=== PATIENT | female | born 1950 | race Caucasian/White ===

== ENCOUNTER → 2017-02-15 | Outpatient (CLI) | payer OTHER ==
[~2017-02-15] MED LIST: ALBU6.7H INH; CALC1TAB38 PO; DIPH25CA61 PO; FLUT1DIS IH; GLIM2TAB2 PO; HYDR-3138 PO; HYDR28.423 TP; LORA10TA72 PO; LOSA100T6 PO; LOSA1TAB16 PO; NAPR220C2 PO; TRIA15OI TP
== END | disposition home or self-care (01) ==
LOC: CFH 11:58
PROVIDERS: ATTEND Neurological Surgery
DX: M51.37 Other intervertebral disc degeneration, lumbosacral region (principal); M50.30 Other cervical disc degeneration, unspecified cervical region; M43.16 Spondylolisthesis, lumbar region; M48.06 Spinal stenosis, lumbar region; M48.02 Spinal stenosis, cervical region; M47.892 Other spondylosis, cervical region; M47.893 Other spondylosis, cervicothoracic region; G95.89 Other specified diseases of spinal cord
CPT/HCPCS: 72050; 72110

== ENCOUNTER 2017-07-13 10:01 | Emergency (ER) | payer OTHER ==
[~2017-07-13] VITALS: Ht 154.9 cm; Wt 113.0 kg
[~2017-07-13 10:01] MED LIST changes: -HYDR-3138 PO; +HYDR-3237 PO; -LOSA1TAB16 PO; +LOSA1TAB19 PO
[2017-07-13 10:10] VITALS: BP 159/114
[2017-07-13] MEDS ORDERED: SODIUM CHLORIDE 0.9% 1,000 ML IV ONE (10:10)
[2017-07-13] MEDS ORDERED: PLEASE ENTER HEIGHT AND WEIGHT MC SCH (10:30)
[2017-07-13] MEDS ORDERED: SODIUM CHLORIDE FLUSH 10ML SYR IVF ONE (10:30)
[2017-07-13] MEDS ORDERED: ASPIRIN 81 MG TABLET CHEW PO ONE (10:30)
[2017-07-13 10:38] LABS: HEMATOCRIT 45.4 % (34.6-47.8); HEMOGLOBIN 15.3 g/dL (11.7-16.4); WHITE BLOOD COUNT 8.6 x10^3/uL (3.4-10)
[2017-07-13] MEDS ORDERED: FENO160T PO (10:39)
[2017-07-13] MEDS ORDERED: SITA100T PO (10:39)
[2017-07-13] MEDS ORDERED: CHOL200024 PO (10:39)
[2017-07-13 10:45] LABS: ASPARTATE AMINO TRANSFERASE 17 U/L (15-37); BLOOD UREA NITROGEN 11 mg/dL (7-18)
[2017-07-13 10:50] LABS: IS PT STATUS REG ER OR PRE ER? YES
[2017-07-13] MEDS ORDERED: RANI150C PO (16:43)
== END 2017-07-13 12:59 | disposition home or self-care (01) ==
LOC: ED 11:15
DX: R07.89 Other chest pain (principal); E11.9 Type 2 diabetes mellitus without complications; E78.00 Pure hypercholesterolemia, unspecified; I10 Essential (primary) hypertension; Z87.891 Personal history of nicotine dependence
CPT/HCPCS: 36415; 71010; 80053; 83880; 84484; 85025; 93005; 96360; 96361; 99285; J7030

== ENCOUNTER 2017-07-13 15:52 | Inpatient (IN) | payer OTHER ==
[~2017-07-13] VITALS: Ht 154.9 cm; Wt 113.6 kg
[~2017-07-13 15:52] MED LIST changes: +CHOL200024 PO; +FENO160T PO; +SITA100T PO
[2017-07-13] MEDS ORDERED: RANI150C PO (16:43)
[2017-07-13 17:05] LABS: IS PT STATUS REG ER OR PRE ER? YES
[2017-07-13] MEDS ORDERED: OMNIPAQUE 350 MG/ML, 100ML BOTTLE ONE (19:31)
[2017-07-13] MEDS ORDERED: ONDANSETRON 2MG/ML, 2ML IVPush PRN (20:00)
[2017-07-13] MEDS: HEPARIN 5,000 UNITS/ML, 1ML SQ SCH (20:00)
[2017-07-13] MEDS ORDERED: morphine SULFATE 10 MG/ML, 1ML IVPush PRN (20:00)
[2017-07-13] MEDS ORDERED: POLYETHYLENE GLYCOL 17 GM PACKET PO PRN (20:00)
[2017-07-13] MEDS ORDERED: NITROGLYCERIN 0.4 MG BOTTLE (25 TABS) SL PRN (20:00)
[2017-07-13] MEDS ORDERED: BISACODYL 10 MG SUPP PR PRN (20:00)
[2017-07-13] MEDS ORDERED: DIPHENHYDRAMINE 25 MG CAPSULE PO PRN (20:00)
[2017-07-13] MEDS ORDERED: ACETAMINOPHEN 325 MG TABLET PO PRN (20:00)
[2017-07-13 20:23] LABS: FERRITIN 45.7 ng/mL (8-252)
[2017-07-13] MEDS ORDERED: ALBUTEROL/IPRATROPIUM 2.5MG/0.5MG, 3 ML NPPB PRN (20:30)
[2017-07-13] MEDS ORDERED: RANITIDINE MC SCH (21:00)
[2017-07-13] MEDS ORDERED: GLIMEPIRIDE MC SCH (21:00)
[2017-07-13 21:24] VITALS: BP 142/85
[2017-07-13] MEDS: SODIUM CHLORIDE FLUSH 10ML SYR IVF SCH (21:52)
[2017-07-13] MEDS: GLIMEPIRIDE 1 MG TABLET PO SCH (22:16)
[2017-07-13] MEDS ORDERED: CALCIUM CARBONATE 500 MG TAB.CHEW PO PRN (22:30)
[2017-07-13 23:39] LABS: IS PT STATUS REG ER OR PRE ER? NO
[2017-07-14 01:30] VITALS: BP 111/60
[2017-07-14] MEDS: HEPARIN 5,000 UNITS/ML, 1ML SQ SCH ×2 (04:00→12:00)
[2017-07-14 05:06] LABS: IS PT STATUS REG ER OR PRE ER? NO
[2017-07-14] MEDS ORDERED: ASPIRIN 81 MG TABLET EC PO SCH (06:00)
[2017-07-14] MEDS ORDERED: HYDROCHLOROTHIAZIDE 12.5 MG CAPSULE PO SCH (09:00)
[2017-07-14] MEDS ORDERED: FAMOTIDINE 20 MG TABLET PO SCH (09:00)
[2017-07-14] MEDS ORDERED: SENNA/DOCUSATE TABLET PO SCH (09:00)
[2017-07-14] MEDS ORDERED: FENOFIBRATE 145 MG TABLET PO SCH (09:00)
[2017-07-14] MEDS ORDERED: SITAGLIPTIN 50MG TABLET PO SCH (09:00)
[2017-07-14] MEDS ORDERED: CHOLECALCIFEROL 1,000 UNIT TABLET PO SCH (09:00)
[2017-07-14] MEDS ORDERED: LOSARTAN 50MG TABLET PO SCH (09:00)
[2017-07-14 11:25] VITALS: BP 120/83
[2017-07-14 13:40] VITALS: BP 112/58
[2017-07-14] MEDS: GLIMEPIRIDE 1 MG TABLET PO SCH (14:46)
[2017-07-14] MEDS: SODIUM CHLORIDE FLUSH 10ML SYR IVF SCH (14:49)
== END 2017-07-14 18:25 | disposition home or self-care (01) | DRG 313 ==
LOC: ED 18:06 → EDIP 18:33 → 5SO 20:28
PROVIDERS: ADMIT Internal Medicine; ATTEND Internal Medicine
DX: R07.89 Other chest pain (principal); I25.10 Atherosclerotic heart disease of native coronary artery without angina pectoris; E11.65 Type 2 diabetes mellitus with hyperglycemia; I11.9 Hypertensive heart disease without heart failure; Z68.42 Body mass index [BMI] 45.0-49.9, adult; D50.9 Iron deficiency anemia, unspecified; E66.01 Morbid (severe) obesity due to excess calories; E78.00 Pure hypercholesterolemia, unspecified; E78.5 Hyperlipidemia, unspecified; G47.33 Obstructive sleep apnea (adult) (pediatric); I25.2 Old myocardial infarction; Z82.3 Family history of stroke; Z90.49 Acquired absence of other specified parts of digestive tract; Z88.8 Allergy status to other drugs, medicaments and biological substances; Z87.891 Personal history of nicotine dependence
CPT/HCPCS: 36415; 71275; 80061; 82728; 82962; 83036; 83540; 83550; 84439; 84443; 84484; 85379; 93005; 93306; 99285; Q9967

== ENCOUNTER → 2017-10-19 | Outpatient (CLI) | payer MEDICARE, OTHER ==
[~2017-10-19] MED LIST changes: +RANI150C PO
== END | disposition home or self-care (01) ==
LOC: CFH 14:23
PROVIDERS: ATTEND Neurological Surgery
DX: M50.323 Other cervical disc degeneration at C6-C7 level (principal); M48.061 Spinal stenosis, lumbar region without neurogenic claudication; M25.78 Osteophyte, vertebrae
CPT/HCPCS: 72050; 72110

== ENCOUNTER → 2018-03-08 | Outpatient (CLI) | payer MEDICARE ==
[2018-03-08 15:53] LABS: BASOPHILS # (AUTO) 0.05 x10^3/uL (0-0.1); BASOPHILS % (AUTO) 1 % (0-1); EOSINOPHILS # (AUTO) 0.18 x10^3/uL (0-0.4); EOSINOPHILS % (AUTO) 2 % (1-7); LYMPHOCYTES # (AUTO) 3.18 x10^3/uL (1-3.4); LYMPHOCYTES % (AUTO) 42 % (22-44); MD NO; MEAN CORPUSCULAR HEMOGLOBIN 26.4 pg (27.0-34.8); MEAN CORPUSCULAR HGB CONC 33.1 g/dL (32.4-35.8); MEAN CORPUSCULAR VOLUME 79.7 fL (80-100); MEAN PLATELET VOLUME 8.9 fL (7.4-10.4); MONOCYTES # (AUTO) 0.56 x10^3/uL (0.2-0.8); MONOCYTES % (AUTO) 7 % (2-9); NEUTROPHILS % (AUTO) 48 % (42-75); PLATELET COUNT 283 x10^3/uL (130-400); RED BLOOD COUNT 5.77 x10^6/uL (3.82-5.3); RED CELL DISTRIBUTION WIDTH 15.4 % (9.6-15.2)
[2018-03-08 16:01] LABS: ALBUMIN 4.3 g/dL (3.4-5.0); ANION GAP 6 mmol/L (5-15); CALCIUM 10.6 mg/dL (8.5-10.1); CHLORIDE 105 mmol/L (98-107)
[2018-03-08 16:07] LABS: ALANINE AMINOTRANSFERASE 27 U/L (12-78); ALKALINE PHOSPHATASE 68 U/L (45-117); BILIRUBIN,TOTAL 0.6 mg/dL (0.2-1.0); CHOL/HDL RATIO 6.2; CHOLESTEROL, TOTAL 198 mg/dL (140-239); CREATININE 1.14 mg/dL (0.55-1.02); HDL CHOL % 16 % (28-40); HDL CHOLESTEROL (DIRECT) 32 mg/dL (40-60); LDL CHOLESTEROL,CALCULATED 131 mg/dL (54-169); LDL/HDL RATIO 4.1 (0.5-3.0); TOTAL PROTEIN 7.6 g/dL (6.4-8.2); TRIGLYCERIDES 176 mg/dL (50-200); VLDL CHOLESTEROL 35 mg/dL (0-25)
[2018-03-08 16:17] LABS: HEMOGLOBIN A1C 7.4 % (4.2-6.3)
== END | disposition home or self-care (01) ==
LOC: LAB 14:49
PROVIDERS: ATTEND Registered Nurse
DX: E11.40 Type 2 diabetes mellitus with diabetic neuropathy, unspecified (principal); E78.5 Hyperlipidemia, unspecified; I10 Essential (primary) hypertension; J45.909 Unspecified asthma, uncomplicated
CPT/HCPCS: 36415; 80053; 80061; 83036; 85025

== ENCOUNTER → 2018-03-23 | Outpatient (CLI) | payer MEDICARE | END | disposition home or self-care (01) | LOC: CFH 16:10 | PROVIDERS: ATTEND Physician Assistant | DX: R10.2 Pelvic and perineal pain (principal) | CPT/HCPCS: 76830 ==

== ENCOUNTER → 2020-06-08 | Outpatient (CLI) | payer MEDICARE ==
[~2020-06-08] MED LIST changes: -ALBU6.7H INH; +ALBU6.7H8 INH; -GLIM2TAB2 PO; +GLIM2TAB7 PO; +LOSA100T14 PO; -LOSA100T6 PO
== END | disposition home or self-care (01) ==
LOC: RAD 11:20
PROVIDERS: ATTEND Neurological Surgery
DX: S33.140A Subluxation of L4/L5 lumbar vertebra, initial encounter (principal); M51.34 Other intervertebral disc degeneration, thoracic region; X58.XXXA Exposure to other specified factors, initial encounter; Y93.89 Activity, other specified; Y92.89 Other specified places as the place of occurrence of the external cause; Y99.8 Other external cause status
CPT/HCPCS: 72050; 72072; 72110

== ENCOUNTER 2020-07-20 06:57 | Outpatient (CLI) | payer MEDICARE ==
[2020-07-20] MEDS ORDERED: NALOXONE 1 MG/ML, 2ML ONE (07:58)
[2020-07-20] MEDS ORDERED: FLUMAZENIL 0.1 MG/1 ML, 5ML ONE (07:58)
[2020-07-20] MEDS ORDERED: MIDAZOLAM 1 MG/ML, 5ML ONE (07:58)
[2020-07-20] MEDS ORDERED: FENTANYL PF 100 MCG/2ML ONE ×2 (07:58)
== END 2020-07-20 23:59 | disposition home or self-care (01) ==
LOC: RAD 06:57
PROVIDERS: ATTEND Neurological Surgery
DX: M47.816 Spondylosis without myelopathy or radiculopathy, lumbar region (principal); M48.061 Spinal stenosis, lumbar region without neurogenic claudication; M54.2 Cervicalgia; M96.1 Postlaminectomy syndrome, not elsewhere classified; M46.1 Sacroiliitis, not elsewhere classified; I10 Essential (primary) hypertension; E11.9 Type 2 diabetes mellitus without complications; J45.909 Unspecified asthma, uncomplicated; Z79.84 Long term (current) use of oral hypoglycemic drugs; Z79.899 Other long term (current) drug therapy; Z87.891 Personal history of nicotine dependence; Z88.8 Allergy status to other drugs, medicaments and biological substances; Z90.49 Acquired absence of other specified parts of digestive tract; Z98.1 Arthrodesis status; Z98.51 Tubal ligation status; Z98.890 Other specified postprocedural states; Z82.61 Family history of arthritis; Z83.3 Family history of diabetes mellitus; Z82.49 Family history of ischemic heart disease and other diseases of the circulatory system; Z83.42 Family history of familial hypercholesterolemia
CPT/HCPCS: 72148; 99156; 99157; J2250; J3010; J2310

== ENCOUNTER 2020-12-26 11:14 | Emergency (ER) | payer MEDICARE ==
[~2020-12-26] VITALS: Ht 157.5 cm; Wt 114.9 kg
--- NOTE | 2020-12-26 13:53 | NUR ---
XRAY AT BEDSIDE IV SET UP AT BEDSIDE. PT CHANGED INTO GOWN. REPORTS TIREDNESS UPON EXERTION. NAD NOTED AT THIS TIME. SIDE RAIL UP, CALL LIGHT IN REACH.
[2020-12-26] MEDS ORDERED: SODIUM CHLORIDE 0.9% 1,000 ML IV ONE (14:00)
[2020-12-26 14:32] LABS: ALANINE AMINOTRANSFERASE 29 U/L (12-78); ALBUMIN 4.8 g/dL (3.4-5.0); ANION GAP 4 mmol/L (5-15); CALCIUM 11.3 mg/dL (8.5-10.1); CHLORIDE 104 mmol/L (98-107)
[2020-12-26 14:35] LABS: ALKALINE PHOSPHATASE 85 U/L (45-117); BASOPHILS % (AUTO) 1 % (0-1); BILIRUBIN,TOTAL 0.5 mg/dL (0.2-1.0); EOSINOPHILS % (AUTO) 2 % (1-7); LYMPHOCYTES % (AUTO) 39 % (22-44); MEAN CORPUSCULAR HEMOGLOBIN 26.7 pg (27.0-34.8); MEAN CORPUSCULAR HGB CONC 33.1 g/dL (32.4-35.8); MEAN PLATELET VOLUME 8.8 fL (7.4-10.4); MONOCYTES % (AUTO) 8 % (2-9); NEUTROPHILS % (AUTO) 50 % (42-75); PLATELET COUNT 315 x10^3/uL (130-400); RED BLOOD COUNT 5.62 x10^6/uL (3.82-5.3); RED CELL DISTRIBUTION WIDTH 14.7 % (9.6-15.2); TOTAL PROTEIN 8.4 g/dL (6.4-8.2)
--- NOTE | 2020-12-26 14:41 | NUR ---
PT SITTING UP IN BED, RESPIRATIONS EVEN AND UNLABORED ON RA. NAD NOTED AT THIS TIME.
[2020-12-26] MEDS ORDERED: MORPHINE SULFATE 4 MG/ML, 1ML IVPush PRN (15:30)
[2020-12-26 16:20] VITALS: BP 129/68
== END 2020-12-26 16:37 | disposition home or self-care (01) ==
LOC: ED 14:55
DX: E83.52 Hypercalcemia (principal); R53.1 Weakness; R06.02 Shortness of breath; E11.9 Type 2 diabetes mellitus without complications; R00.2 Palpitations; I10 Essential (primary) hypertension; E78.00 Pure hypercholesterolemia, unspecified; Z90.49 Acquired absence of other specified parts of digestive tract; R10.9 Unspecified abdominal pain
CPT/HCPCS: 36415; 71045; 73590; 80053; 82330; 85025; 93005; 96360; 96361; 99285; J7030

== ENCOUNTER → 2021-04-05 | Outpatient (CLI) | payer MEDICARE | END | disposition home or self-care (01) | LOC: RAD 11:34 | PROVIDERS: ATTEND Surgery | DX: E21.0 Primary hyperparathyroidism (principal) | CPT/HCPCS: 78070; A9500 ==

== ENCOUNTER 2021-05-12 10:56 | Outpatient (CLI) | payer MEDICARE ==
[2021-05-12 12:24] LABS: CHLORIDE 103 mmol/L (98-107)
[2021-05-12 12:29] LABS: ALANINE AMINOTRANSFERASE 23 U/L (12-78); ALBUMIN 3.9 g/dL (3.4-5.0); ALKALINE PHOSPHATASE 87 U/L (45-117); ANION GAP 5 mmol/L (5-15); BILIRUBIN,TOTAL 0.5 mg/dL (0.2-1.0); CALCIUM 11.3 mg/dL (8.5-10.1); CREATININE 1.11 mg/dL (0.55-1.02); TOTAL PROTEIN 7.5 g/dL (6.4-8.2)
[2021-05-12] MEDS ORDERED: ASPI81TA45 PO (13:18)
[2021-05-12] MEDS ORDERED: LACT1CAP35 PO (13:18)
[2021-05-12] MEDS ORDERED: METH-640 PO (13:18)
[2021-05-12] MEDS ORDERED: FAMO-79 PO (13:18)
[2021-05-12] MEDS ORDERED: IBUP200T64 PO (13:18)
[2021-05-12] MEDS ORDERED: GLIP5TAB10 PO (13:18)
[2021-05-12] MEDS ORDERED: FLUT9.9S NAS (13:18)
== END 2021-05-12 23:59 | disposition home or self-care (01) ==
LOC: STAR 10:56
PROVIDERS: ATTEND Surgery
DX: Z01.818 Encounter for other preprocedural examination (principal); E21.0 Primary hyperparathyroidism; I25.2 Old myocardial infarction; R94.31 Abnormal electrocardiogram [ECG] [EKG]
CPT/HCPCS: 36415; 80053; 93005

== ENCOUNTER 2021-05-17 06:04 | Inpatient (IN) | payer MEDICARE ==
[~2021-05-17] VITALS: Ht 154.9 cm; Wt 109.8 kg
[~2021-05-17 06:04] MED LIST changes: +ASPI81TA45 PO; +FAMO-79 PO; +FLUT9.9S NAS; +GLIP5TAB10 PO; +IBUP200T64 PO; +LACT1CAP35 PO; +METH-640 PO
[2021-05-17] MEDS ORDERED: ONDANSETRON 2MG/ML, 2ML ONE (06:29)
[2021-05-17] MEDS ORDERED: GLYCOPYRROLATE 0.2MG/1ML, 5ML ONE (06:29)
[2021-05-17] MEDS ORDERED: MIDAZOLAM 1 MG/ML, 2ML ONE (06:29)
[2021-05-17] MEDS ORDERED: FENTANYL PF 250 MCG/5ML ONE ×2 (06:29→08:00)
[2021-05-17] MEDS ORDERED: ROCURONIUM 10MG/ML,5ML ONE (06:29)
[2021-05-17] MEDS ORDERED: CEFAZOLIN 1,000 MG ONE (06:29)
[2021-05-17] MEDS ORDERED: PROPOFOL 10 MG/ML, 20ML ONE (06:29)
[2021-05-17] MEDS ORDERED: NEOSTIGMINE 1 MG/ML, 10ML ONE (06:29)
[2021-05-17] MEDS ORDERED: LACTATED RINGERS 1,000 ML IV SCH (06:30)
[2021-05-17] MEDS ORDERED: CHLORHEXIDINE 15 ML UDC PO ONE (06:30)
[2021-05-17] MEDS ORDERED: LIDOCAINE-MPF 1%, 2ML ONE (06:45)
[2021-05-17] MEDS ORDERED: SUGAMMADEX 200 MG/2 ML IVPush ONE (07:23)
[2021-05-17] MEDS ORDERED: DEXAMETHASONE 4 MG/ML, 1ML ONE (07:23)
[2021-05-17] MEDS ORDERED: OXYcodone 5 MG/5 ML ORAL.SOL UDC PO PRN (07:30)
[2021-05-17] MEDS ORDERED: HYDROmorphone 1 MG/ML, 1ML INJ IVPush PRN (07:30)
[2021-05-17] MEDS ORDERED: LIDOCAINE-MPF 1%, 2ML INFIL ONE (07:30)
[2021-05-17] MEDS ORDERED: morphine SULFATE 10 MG/ML, 1ML IVPush PRN (07:30)
[2021-05-17] MEDS ORDERED: PROMETHAZINE 25 MG/ML, 1ML IVPush PRN (07:30)
[2021-05-17] MEDS ORDERED: MEPERIDINE/PF 25MG/0.5ML IVPush PRN (07:30)
[2021-05-17] MEDS ORDERED: ACETAMINOPHEN 325 MG TABLET PO PRN (07:30)
[2021-05-17] MEDS ORDERED: hydrALAzine 20 MG/ML, 1ML IV PRN (07:30)
[2021-05-17] MEDS ORDERED: HALOPERIDOL 5 MG/ML IV PRN (07:30)
[2021-05-17] MEDS ORDERED: LABETALOL 5MG/ML, 20ML IV PRN (07:30)
[2021-05-17] MEDS ORDERED: BUPIVACAINE/PF 0.25% ONE (08:18)
[2021-05-17] MEDS ORDERED: EPINEPHRINE 1 MG/ML, 1ML ONE (08:19)
[2021-05-17] MEDS ORDERED: LABETALOL 5MG/ML, 20ML ONE (09:34)
[2021-05-17 09:42] LABS: IOPTH BASELINE 52 pg/mL
[2021-05-17 09:43] LABS: SAMPLE 5 %DROP IOPTH 58 %; SAMPLE 6 %DROP IOPTH 83 %; SAMPLE 7 %DROP IOPTH 85 %
[2021-05-17] MEDS ORDERED: FENTANYL PF 100 MCG/2ML ONE (10:12)
[2021-05-17] MEDS: FENTANYL PF 100 MCG/2ML IV PRN ×3 (10:15→10:36)
[2021-05-17] MEDS ORDERED: morphine SULFATE 10 MG/ML, 1ML IV PRN (11:30)
[2021-05-17] MEDS ORDERED: HYDROcodone/APAP 5/325 TABLET PO PRN (11:30)
[2021-05-17] MEDS ORDERED: ONDANSETRON 2MG/ML, 2ML IV PRN (11:30)
[2021-05-17 12:27] LABS: ALBUMIN 3.6 g/dL (3.4-5.0); CALCIUM 9.7 mg/dL (8.5-10.1)
[2021-05-17] MEDS: LACTATED RINGERS 1,000 ML IV SCH (12:27)
[2021-05-17 13:57] VITALS: BP 114/61
[2021-05-17] MEDS ORDERED: ALBUTEROL SULFATE 2.5 MG/3 ML HHN PRN (18:00)
[2021-05-17] MEDS ORDERED: ACETAMINOPHEN 650 MG/20.3 ML UDC PO PRN (18:00)
[2021-05-17 18:19] LABS: ALBUMIN 3.6 g/dL (3.4-5.0); CALCIUM 9.8 mg/dL (8.5-10.1)
[2021-05-17 20:23] VITALS: BP 122/81
[2021-05-17] MEDS: SODIUM CHLORIDE FLUSH 10ML SYR IVF SCH (20:53)
[2021-05-17] MEDS: LORATADINE 10 MG TABLET PO SCH (20:53)
[2021-05-17] MEDS: FAMOTIDINE 10 MG TAB PO SCH (20:54)
[2021-05-17] MEDS ORDERED: LOSARTAN 50MG TABLET PO SCH (21:00)
[2021-05-17] MEDS ORDERED: HYDROCHLOROTHIAZIDE 12.5 MG CAPSULE PO SCH (21:00)
[2021-05-17 23:26] VITALS: BP 136/67
[2021-05-18] MEDS: LACTATED RINGERS 1,000 ML IV SCH (00:39)
[2021-05-18 00:51] LABS: ALBUMIN 3.4 g/dL (3.4-5.0); CALCIUM 9.4 mg/dL (8.5-10.1)
[2021-05-18 03:09] VITALS: BP 116/74
[2021-05-18] MEDS ORDERED: HYDR-2214 PO (08:13)
[2021-05-18 08:28] VITALS: BP 100/64
[2021-05-18] MEDS ORDERED: LOSARTAN 50MG TABLET PO SCH (09:00)
[2021-05-18] MEDS ORDERED: LINAGLIPTIN 5 MG TAB PO SCH (09:00)
[2021-05-18] MEDS ORDERED: FENOFIBRATE 145 MG TABLET PO SCH (09:00)
[2021-05-18] MEDS ORDERED: HYDROCHLOROTHIAZIDE 12.5 MG CAPSULE PO SCH (09:00)
[2021-05-18] MEDS: LORATADINE 10 MG TABLET PO SCH (09:06)
[2021-05-18] MEDS: SODIUM CHLORIDE FLUSH 10ML SYR IVF SCH (09:08)
[2021-05-18] MEDS: FAMOTIDINE 10 MG TAB PO SCH (09:08)
[2021-05-18 09:36] LABS: ALBUMIN 3.6 g/dL (3.4-5.0); CALCIUM 9.6 mg/dL (8.5-10.1)
[2021-05-18 10:59] VITALS: BP 108/72
== END 2021-05-18 11:30 | disposition home or self-care (01) | DRG 624 ==
LOC: OUT 06:04 → 4NE 10:53 → OUT 22:09
PROVIDERS: ADMIT Surgery; ATTEND Surgery
PROC: 0GBP0ZZ Excision of Left Inferior Parathyroid Gland, Open Approach (ICD-10-PCS; 2021-05-17)
PROC: 0GBH0ZZ Excision of Right Thyroid Gland Lobe, Open Approach (ICD-10-PCS; 2021-05-17)
PROC: 0JBD0ZZ Excision of Right Upper Arm Subcutaneous Tissue and Fascia, Open Approach (ICD-10-PCS; principal; 2021-05-17 07:30)
DX: E21.0 Primary hyperparathyroidism (principal); E04.2 Nontoxic multinodular goiter; K59.00 Constipation, unspecified; M85.80 Other specified disorders of bone density and structure, unspecified site; N20.0 Calculus of kidney; Z88.8 Allergy status to other drugs, medicaments and biological substances; Z90.89 Acquired absence of other organs; Z90.49 Acquired absence of other specified parts of digestive tract; Z79.899 Other long term (current) drug therapy; R22.31 Localized swelling, mass and lump, right upper limb
CPT/HCPCS: 36415; 82040; 82310; 82962; 83970; 88305; 88307; 88331; G0378; J0171; J0690; J1100; J2250; J2405; J2704; J2710; J3010; J7120